=== PATIENT | male | born 1970 | race Two or more races ===

== ENCOUNTER 2019-09-01 07:43 | Outpatient (CLI) | payer OTHER | END 2019-09-01 08:10 | disposition home or self-care (01) | LOC: NUCLEAR 07:43 | DX: I20.0 Unstable angina (principal); I25.10 Atherosclerotic heart disease of native coronary artery without angina pectoris | CPT/HCPCS: 78452; 93017; A9500 ==

== ENCOUNTER 2024-01-29 10:12 | Outpatient (CLI) | payer OTHER | END 2024-01-29 10:13 | disposition home or self-care (01) | LOC: NUCLEAR 10:12 | PROVIDERS: ATTEND Internal Medicine | DX: I10 Essential (primary) hypertension (principal); I50.9 Heart failure, unspecified ==

== ENCOUNTER 2024-02-03 07:10 | Outpatient (CLI) | payer OTHER | END 2024-02-03 07:15 | disposition home or self-care (01) | LOC: NUCLEAR 07:10 | PROVIDERS: ATTEND Internal Medicine | DX: I20.9 Angina pectoris, unspecified (principal); I10 Essential (primary) hypertension ==